=== PATIENT | female | born 1970 | race Caucasian/White ===

== ENCOUNTER 2016-08-05 21:16 | Inpatient (IN) | payer BC, OTHER ==
[~2016-08-05] VITALS: Ht 165.1 cm; Wt 131.0 kg
[2016-08-05] MEDS ORDERED: MoRPHine SULFATE 4 MG/ML 1 ML CARP\\VIAL IV STA ×2 (21:50→23:15)
[2016-08-05] MEDS ORDERED: SODIUM CHLORIDE 0.9% 1000ML 1,000 ML IV STA (21:50)
[2016-08-05] MEDS ORDERED: ONDANSETRON INJ 2 MG/ML 2 ML VIAL IV STA ×2 (21:50→23:58)
[2016-08-05 22:13] LABS: BASO % 0.2 %; BASO ABS # 0.03 K/uL (0-0.2); COMPLETE YES; EOS % 2.4 %; HEMATOCRIT 35.5 % (37-47); IG% 0.3 %; LYMPH % 17.2 %; LYMPH ABS # 2.11 K/uL (1.2-3.4); MEAN CELL VOLUME 86.6 fL (80-100); MEAN CORPUSCULAR HEMOGLOBIN 29.3 pg (25-34); MEAN CORPUSCULAR HGB CONC 33.8 g/dl (32-36); MEAN PLATELET VOLUME 9.6 fL (7.4-10.4); MONO % 5.1 %; NEUT % 74.8 %; PLATELET COUNT 360 K/uL (130-400); WHITE BLOOD COUNT 12.25 K/uL (4.8-10.8)
[2016-08-05 22:31] LABS: BUN/CREATININE RATIO 13.3 (10-20); CALCIUM 9.4 mg/dl (8.5-10.1); CREATININE 1.3 mg/dl (0.60-1.20); POTASSIUM 3.6 mmol/L (3.5-5.1)
[2016-08-05 22:45] LABS: PREG INTERNAL NEGATIVE QC NEG CLEAR BACKGROUND; PREG INTERNAL POSITIVE QC POS CONTROL LINE
--- NOTE | 2016-08-05 22:46 | DIAGNOSTIC IMAGING REPORT ---
BILIARY ULTRASOUND CLINICAL HISTORY: Right upper quadrant abdominal pain. Nausea. COMPARISON STUDY: None FINDINGS: The pancreas appears normal as visualized. No focal hepatic masses are visualized. There is no ductal dilatation. The common bile duct measures 6 mm. There is a large calcified gallstone. There is mild gallbladder wall thickening. There is no pericholecystic fluid. IMPRESSION: 1. Cholelithiasis with mild gallbladder wall thickening 2. No evidence of ductal dilatation. Electronically signed by: Davion Porter M.D. 08/05/2016 10:44 PM Dictated Date/Time: 08/05/2016 10:42 PM
[2016-08-05 23:26] LABS: URINE APPEARANCE CLOUDY (CLEAR); URINE BILIRUBIN NEG (NEG); URINE COLOR YELLOW; URINE EPITHELIAL CELL AUTO >30 /lpf (0-5); URINE NITRITE NEG (NEG); URINE SPECIFIC GRAVITY 1.025 (1.000-1.030); UROBILINOGEN NEG (NEG); ZZUR CULT IF INDIC CLEAN CATCH NO
[2016-08-05 23:32] LABS: MANUAL MICROSCOPIC REQUIRED? NO; REVIEW REQ? NO
--- NOTE | 2016-08-05 23:33 | EMERGENCY ROOM VISIT NOTE ---
History First contact with patient: 21:36 Chief Complaint: ABDOMINAL PAIN Stated Complaint: UPPER RIGHT ABD PAIN Nursing Triage Summary: pt c/o since 1600 having pain in upper right abd under her ribs History of Present Illness The patient is a 45 year old female who presents to the Emergency Room with complaints of right-sided abdominal pain. She reports that she developed pain in her right upper abdomen approximately 5 hours ago. The patient states that she initially thought the pain may be due to gas, but her symptoms continued to gradually worsen. She states that the pain became worse after eating. She reports it has been colicky pain. She rates her current discomfort an 8/10. She has had nausea, but no vomiting. She denies any urinary symptoms or changes in bowel movements. She reports that she has had similar episodes of pain one month ago and one year ago. 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 She denies any history of abdominal surgery. She denies any fevers/chills, chest pain or shortness of breath. Review of Systems A complete 10-point Review of Systems was discussed with the patient, with pertinent positives and negatives listed in the History of Present Illness. All remaining Review of Systems questions can be considered negative unless otherwise specified. Past Medical/Surgical History Medical Problems: (1) Acute cholecystitis Social History Smoking Status: Never Smoker Current/Historical Medications Scheduled Atorvastatin (Lipitor), 10 MG PO QPM Hctz/Losartan (Hyzaar 12.5MG/50MG), 1 TAB PO QAM Ranitidine HCl (Ranitidine 75), 75 MG PO QPM Allergies Coded Allergies: Penicillins (Verified Allergy, Unknown, 08/06/16) Sulfa Drugs (Verified Allergy, Unknown, 08/06/16) Uncoded Allergies: PENICILLIN, SULFA (Allergy, Unknown, 01/20/04) Physical Exam Vital Signs Date Time Temp Pulse Resp B/P Pulse Ox O2 Delivery O2 Flow Rate FiO2 08/05/16 23:20 75 18 116/65 97 Room Air 08/05/16 21:22 36.7 91 18 183/92 99 Room Air Physical Exam VITALS: Vitals are noted on the nurse's note and reviewed by myself. Vital signs stable. GENERAL: This is a 45-year-old female, in no acute distress, nondiaphoretic, well-developed well-nourished. SKIN: Capillary reflex less than 2 seconds. HEENT: Normocephalic. PERRLA. EOMI. Nares patent. Mucous membranes moist. Neck is supple without nuchal rigidity. HEART: Regular rate and rhythm without murmurs gallops or rubs. LUNGS: Clear to auscultation bilaterally without wheezes, rales or rhonchi. ABDOMEN: Positive bowel sounds x 4. Soft, nondistended. There is moderate tenderness to palpation of the right upper quadrant. No guarding or rebound tenderness. Negative Gaspar sign. NEURO: Patient was alert and oriented to person place and time. Medical Decision & Procedures ER Provider Diagnostic Interpretation: BILIARY ULTRASOUND CLINICAL HISTORY: Right upper quadrant abdominal pain. Nausea. COMPARISON STUDY: None FINDINGS: The pancreas appears normal as visualized. No focal hepatic masses are visualized. There is no ductal dilatation. The common bile duct measures 6 mm. There is a large calcified gallstone. There is mild gallbladder wall thickening. There is no pericholecystic fluid. IMPRESSION: 1. Cholelithiasis with mild gallbladder wall thickening 2. No evidence of ductal dilatation. Laboratory Results 08/05/16 22:04 Red Blood Count 4.10, Mean Corpuscular Volume 86.6, Mean Corpuscular Hemoglobin 29.3, Mean Corpuscular Hemoglobin Concent 33.8, Mean Platelet Volume 9.6, Neutrophils (%) (Auto) 74.8, Lymphocytes (%) (Auto) 17.2, Monocytes (%) (Auto) 5.1, Eosinophils (%) (Auto) 2.4, Basophils (%) (Auto) 0.2, Neutrophils # (Auto) 9.15, Lymphocytes # (Auto) 2.11, Monocytes # (Auto) 0.63, Eosinophils # (Auto) 0.29, Basophils # (Auto) 0.03 08/05/16 22:04 Test 08/05/16 22:04 08/05/16 22:10 White Blood Count 12.25 K/uL (4.8-10.8) Red Blood Count 4.10 M/uL (4.2-5.4) Hemoglobin 12.0 g/dL (12.0-16.0) Hematocrit 35.5 % (37-47) Mean Corpuscular Volume 86.6 fL (80-100) Mean Corpuscular Hemoglobin 29.3 pg (25-34) Mean Corpuscular Hemoglobin Concent 33.8 g/dl (32-36) Platelet Count 360 K/uL (130-400) Mean Platelet Volume 9.6 fL (7.4-10.4) Neutrophils (%) (Auto) 74.8 % Lymphocytes (%) (Auto) 17.2 % Monocytes (%) (Auto) 5.1 % Eosinophils (%) (Auto) 2.4 % Basophils (%) (Auto) 0.2 % Neutrophils # (Auto) 9.15 K/uL (1.4-6.5) Lymphocytes # (Auto) 2.11 K/uL (1.2-3.4) Monocytes # (Auto) 0.63 K/uL (0.11-0.59) Eosinophils # (Auto) 0.29 K/uL (0-0.5) Basophils # (Auto) 0.03 K/uL (0-0.2) RDW Standard Deviation 40.4 fL (36.4-46.3) RDW Coefficient of Variation 12.8 % (11.5-14.5) Immature Granulocyte % (Auto) 0.3 % Immature Granulocyte # (Auto) 0.04 K/uL (0.00-0.02) Anion Gap 8.0 mmol/L (3-11) Est Creatinine Clear Calc Drug Dose 73.1 ml/min Estimated GFR () 56.6 Estimated GFR (Non- 48.8 BUN/Creatinine Ratio 13.3 (10-20) Calcium Level 9.4 mg/dl (8.5-10.1) Total Bilirubin 0.3 mg/dl (0.2-1) Aspartate Amino Transf (AST/SGOT) 15 U/L (15-37) Alanine Aminotransferase (ALT/SGPT) 24 U/L (12-78) Alkaline Phosphatase 90 U/L (45-117) Total Protein 7.5 gm/dl (6.4-8.2) Albumin 3.8 gm/dl (3.4-5.0) Globulin 3.7 gm/dl (2.5-4.0) Albumin/Globulin Ratio 1.0 (0.9-2) Lipase 129 U/L (73-393) Urine Color YELLOW Urine Appearance CLOUDY (CLEAR) Urine pH 7.0 (4.5-7.5) Urine Specific [place] 1.025 (1.000-1.030) Urine Protein NEG (NEG) Urine Glucose (UA) NEG (NEG) Urine Ketones NEG (NEG) Urine Occult Blood NEG (NEG) Urine Nitrite NEG (NEG) Urine Bilirubin NEG (NEG) Urine Urobilinogen NEG (NEG) Urine Leukocyte Esterase NEG (NEG) Urine WBC (Auto) 1-5 /hpf (0-5) Urine RBC (Auto) 0-4 /hpf (0-4) Urine Hyaline Casts (Auto) 1-5 /lpf (0-5) Urine Epithelial Cells (Auto) >30 /lpf (0-5) Urine Bacteria (Auto) NEG (NEG) Urine Test NEG (NEG) Medications Administered Medications (Trade) Dose Ordered Sig/Caitlin Route Start Time Stop Time Status Last Admin Dose Admin Sodium Chloride (Nss 1000ml) 1,000 ml @ 999 mls/hr Q1H1M STAT IV 08/05/16 21:50 08/05/16 22:50 DC 08/05/16 22:03 999 MLS/HR Morphine Sulfate (MoRPHine SULFATE INJ) 4 mg NOW STAT IV 08/05/16 21:50 08/05/16 21:52 DC 08/05/16 22:03 4 MG Ondansetron HCl (Zofran Inj) 4 mg NOW STAT IV 08/05/16 21:50 08/05/16 21:52 DC 08/05/16 22:03 4 MG Morphine Sulfate (MoRPHine SULFATE INJ) 4 mg NOW STAT IV 08/05/16 23:15 08/05/16 23:16 DC 08/05/16 23:27 4 MG Ondansetron HCl (Zofran Inj) 4 mg NOW STAT IV 08/05/16 23:58 08/05/16 23:59 DC 08/06/16 00:03 4 MG Ondansetron HCl (Zofran Inj) 4 mg Q4H PRN IV 08/06/16 00:45 09/05/16 00:44 08/06/16 02:00 4 MG Oxycodone/ Acetaminophen (Percocet 5-325mg Tab) 1 tab Q4H PRN PO 08/06/16 00:45 08/20/16 00:44 08/06/16 01:42 1 TAB ED Course The patient was evaluated as above. Labs were drawn and IV access was obtained. Patient was medicated with 1 L normal saline solution, 4 mg morphine IV and 4 mg Zofran IV. Right upper quadrant ultrasound was performed and read by radiology as above. Patient was reevaluated and had continued pain. She was given an additional 4 mg morphine and 4 mg Zofran. Case was discussed with Dr. Mast. He agreed to admit the patient for pain control and surgical intervention in the morning. Medical Decision Differential diagnosis includes cholecystitis, cholelithiasis, ascending cholangitis, renal calculus, pyelonephritis, gastroenteritis, colitis, among others. The patient is a 45-year-old female who presents today complaining of right upper quadrant pain. Labs revealed a leukocytosis of 12.25. No concerning anemia. LFTs were not elevated. Bilirubin was within normal limits. Urinalysis was not suggestive of infection. Urine was negative. Right upper quadrant ultrasound showed evidence of cholelithiasis with gallbladder wall thickening. In the setting of the patient's pain and leukocytosis, I feel this likely represents acute cholecystitis. Case was discussed with Dr. Mast, the general surgeon on-call, who will evaluate and admit the patient. The patient's case was reviewed with Dr. Mccray, ED attending physician, who agreed with my assessment and treatment plan. Impression Primary Impression: Acute cholecystitis Departure Information Referrals Toña Falk M.D. (PCP) Patient Instructions My [facility]
[2016-08-06] MEDS ORDERED: RANI1TAB75 PO (00:35)
[2016-08-06] MEDS ORDERED: ATOR10TA82 PO (00:35)
[2016-08-06] MEDS ORDERED: HYZ/50125 PO (00:35)
[2016-08-06] MEDS ORDERED: HYDROmorphone INJ 1 MG/ML SYR IV PRN (00:45)
[2016-08-06] MEDS ORDERED: ACETAMINOPHEN 325 MG TAB PO PRN (00:45)
--- NOTE | 2016-08-06 00:53 | History and Physical ---
History & Physical Date & Time of Service: Aug 06, 2016 at 00:47 Chief Complaint: Upper Right Abd Pain Primary Care Physician: Toña Falk M.D. History of Present Illness Source: patient, spouse The patient is a 45 year old female who presents to the Emergency Room with complaints of right-sided abdominal pain. She reports that she developed pain in her right upper abdomen approximately 5 hours ago. The patient states that she initially thought the pain may be due to gas, but her symptoms continued to gradually worsen. She states that the pain became worse after eating. She reports it has been colicky pain. She rates her current discomfort an 8/10. She has had nausea, but no vomiting. She denies any urinary symptoms or changes in bowel movements. She reports that she has had similar episodes of pain one month ago and one year ago. 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 She denies any history of abdominal surgery. She denies any fevers/chills, chest pain or shortness of breath. pt is still have some RUQ pain, with some nausea, but pt denies vomiting, no fever, Social History Smoking Status: Never Smoker Alcohol Use: occasionally Drug Use: none Multi-Drug Resistant Organisms History of MDRO: No Allergies Coded Allergies: Penicillins (Verified Allergy, Unknown, 08/06/16) Sulfa Drugs (Verified Allergy, Unknown, 08/06/16) Uncoded Allergies: PENICILLIN, SULFA (Allergy, Unknown, 01/20/04) Home Medications Scheduled Atorvastatin (Lipitor), 10 MG PO QPM Hctz/Losartan (Hyzaar 12.5MG/50MG), 1 TAB PO QAM Ranitidine HCl (Ranitidine 75), 75 MG PO QPM Review of Systems Constitutional: No chills, No fatigue, No fever, No problem reported, No sweats , No weakness, No weight loss Eyes: No diplopia, No discharge, No eye pain, No problem reported, No redness, No worsening of vision ENT: No dental problems, No hearing loss, No nasal symptoms, No problem reported, No sore throat, No tinnitus, No trouble swallowing, No unusual epistaxis Respiratory: No cough, No dyspnea at rest, No dyspnea on exertion, No hemoptysis, No problem reported, No shortness of breath, No sputum, No wheezing Cardiovascular: No PND, No chest pain, No claudication, No edema, No orthopnea , No palpitations, No problem reported Abdomen: + nausea, + pain Neurologic: No balance problems, No memory loss, No numbness/tingling, No paralysis, No problem reported, No vertigo, No weakness Hematologic / Lymphatic: No abnormal bleeding/bruising, No clotting problems, No night sweats, No problem reported, No swollen lymph nodes Physical Exam Vital Signs Date Time Temp Pulse Resp B/P Pulse Ox O2 Delivery O2 Flow Rate FiO2 08/05/16 23:20 75 18 116/65 97 Room Air 08/05/16 21:22 36.7 91 18 183/92 99 Room Air General Appearance: WD/WN, + mild distress Head: normocephalic Eyes: normal inspection ENT: normal ENT inspection Neck: supple, no JVD Respiratory/Chest: chest non-tender, lungs clear Cardiovascular: regular rate, rhythm, no edema, no gallop, no JVD, no murmur Abdomen/GI: normal bowel sounds, soft, no organomegaly, + tenderness (RUQ) Extremities/Musculoskelatal: normal inspection, no calf tenderness, normal capillary refill 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, no motor/sensory deficits, alert, normal mood/affect Diagnostics Laboratory Results Results Past 24 Hours Test 08/05/16 22:04 08/05/16 22:10 Range/Units White Blood Count 12.25 4.8-10.8 K/uL Red Blood Count 4.10 4.2-5.4 M/uL Hemoglobin 12.0 12.0-16.0 g/dL Hematocrit 35.5 37-47 % Mean Corpuscular Volume 86.6 80-100 fL Mean Corpuscular Hemoglobin 29.3 25-34 pg Mean Corpuscular Hemoglobin Concent 33.8 32-36 g/dl Platelet Count 360 130-400 K/uL Mean Platelet Volume 9.6 7.4-10.4 fL Neutrophils (%) (Auto) 74.8 % Lymphocytes (%) (Auto) 17.2 % Monocytes (%) (Auto) 5.1 % Eosinophils (%) (Auto) 2.4 % Basophils (%) (Auto) 0.2 % Neutrophils # (Auto) 9.15 1.4-6.5 K/uL Lymphocytes # (Auto) 2.11 1.2-3.4 K/uL Monocytes # (Auto) 0.63 0.11-0.59 K/uL Eosinophils # (Auto) 0.29 0-0.5 K/uL Basophils # (Auto) 0.03 0-0.2 K/uL RDW Standard Deviation 40.4 36.4-46.3 fL RDW Coefficient of Variation 12.8 11.5-14.5 % Immature Granulocyte % (Auto) 0.3 % Immature Granulocyte # (Auto) 0.04 0.00-0.02 K/uL Sodium Level 140 136-145 mmol/L Potassium Level 3.6 3.5-5.1 mmol/L Chloride Level 105 98-107 mmol/L Carbon Dioxide Level 27 21-32 mmol/L Anion Gap 8.0 3-11 mmol/L Blood Urea Nitrogen 17 7-18 mg/dl Creatinine 1.30 0.60-1.20 mg/dl Est Creatinine Clear Calc Drug Dose 73.1 ml/min Estimated GFR () 56.6 Estimated GFR (Non- 48.8 BUN/Creatinine Ratio 13.3 10-20 Random Glucose 107 70-99 mg/dl Calcium Level 9.4 8.5-10.1 mg/dl Total Bilirubin 0.3 0.2-1 mg/dl Aspartate Amino Transf (AST/SGOT) 15 15-37 U/L Alanine Aminotransferase (ALT/SGPT) 24 12-78 U/L Alkaline Phosphatase 90 45-117 U/L Total Protein 7.5 6.4-8.2 gm/dl Albumin 3.8 3.4-5.0 gm/dl Globulin 3.7 2.5-4.0 gm/dl Albumin/Globulin Ratio 1.0 0.9-2 Lipase 129 73-393 U/L Urine Color YELLOW Urine Appearance CLOUDY CLEAR Urine pH 7.0 4.5-7.5 Urine Specific [place] 1.025 1.000-1.030 Urine Protein NEG NEG Urine Glucose (UA) NEG NEG Urine Ketones NEG NEG Urine Occult Blood NEG NEG Urine Nitrite NEG NEG Urine Bilirubin NEG NEG Urine Urobilinogen NEG NEG Urine Leukocyte Esterase NEG NEG Urine WBC (Auto) 1-5 0-5 /hpf Urine RBC (Auto) 0-4 0-4 /hpf Urine Hyaline Casts (Auto) 1-5 0-5 /lpf Urine Epithelial Cells (Auto) >30 0-5 /lpf Urine Bacteria (Auto) NEG NEG Urine Test NEG NEG Diagnostic Radiology U/S study-IMPRESSION: 1. Cholelithiasis with mild gallbladder wall thickening 2. No evidence of ductal dilatation. Impression Assessment and Plan IMP acute cholecystitis, cholelithiasis Plan, lady to hospital IV fluid, antibiotic, control pain, pt will have laparoscopic cholecystectomy, Possible open or cholangiogram, D/W benefits, risks and alternatives of procedure, pt understood, she agrees with tushar, I answered all questions, Level of Care Med/Surg VTE Prophylaxis VTE Risk Assessment Done? Y/N: Yes Risk Level: Low Given or contraindicated: SCD's
[2016-08-06 01:19] VITALS: BP 142/84; PULSE 83; TEMP 36.7; O2SAT 95
[2016-08-06 01:20] VITALS: Ht 165.1 cm; Wt 131.0 kg
[2016-08-06] MEDS: OXYCODONE/ACETAMINOPHEN 5-325 TAB PO PRN ×5 (01:42→23:43)
[2016-08-06] MEDS: D5W AND 1/2NSS + 20MEQ KCL 1,000 ML IV SCH ×3 (01:55→21:51)
[2016-08-06] MEDS: ONDANSETRON INJ 2 MG/ML 2 ML VIAL IV PRN ×2 (02:00→08:19)
[2016-08-06] MEDS: CIPROFLOXACIN / D5W 400 MG in PREMIXED IN D5W 200 ML IV SCH ×2 (04:02→16:05)
[2016-08-06] MEDS ORDERED: METRONIDAZOLE / NSS 500 MG in PREMIXED NSS 0 ML IV SCH (06:00)
[2016-08-06 07:24] VITALS: BP 118/70; PULSE 84; TEMP 37.1; O2SAT 97
--- NOTE | 2016-08-06 09:15 | Surgery Progress Note ---
Surgery Progress Note Date of Service Aug 06, 2016. Subjective + feeling well F/U acute cholecystitis, cholelithiasis pt is doing better, less pain, some nausea, no vomiting, Objective Vital Signs: Date Time Temp Pulse Resp B/P Pulse Ox O2 Delivery O2 Flow Rate FiO2 08/06/16 07:24 37.1 84 16 118/70 97 Room Air 08/06/16 01:20 Room Air 08/06/16 01:19 36.7 83 14 142/84 95 Room Air 08/06/16 01:08 76 18 146/83 96 08/05/16 23:20 75 18 116/65 97 Room Air 08/05/16 21:22 36.7 91 18 183/92 99 Room Air General Appearance: WD/WN Head: normocephalic Neck: supple, no adenopathy, no JVD Respiratory/Chest: chest non-tender, lungs clear Cardiovascular: regular rate, rhythm, no edema, no gallop, no JVD Abdomen: normal bowel sounds, non tender, non distended, soft Extremities: normal range of motion, non-tender, normal inspection Laboratory Results: Results Past 24 Hours Test 08/05/16 22:04 08/05/16 22:10 Range/Units White Blood Count 12.25 4.8-10.8 K/uL Red Blood Count 4.10 4.2-5.4 M/uL Hemoglobin 12.0 12.0-16.0 g/dL Hematocrit 35.5 37-47 % Mean Corpuscular Volume 86.6 80-100 fL Mean Corpuscular Hemoglobin 29.3 25-34 pg Mean Corpuscular Hemoglobin Concent 33.8 32-36 g/dl Platelet Count 360 130-400 K/uL Mean Platelet Volume 9.6 7.4-10.4 fL Neutrophils (%) (Auto) 74.8 % Lymphocytes (%) (Auto) 17.2 % Monocytes (%) (Auto) 5.1 % Eosinophils (%) (Auto) 2.4 % Basophils (%) (Auto) 0.2 % Neutrophils # (Auto) 9.15 1.4-6.5 K/uL Lymphocytes # (Auto) 2.11 1.2-3.4 K/uL Monocytes # (Auto) 0.63 0.11-0.59 K/uL Eosinophils # (Auto) 0.29 0-0.5 K/uL Basophils # (Auto) 0.03 0-0.2 K/uL RDW Standard Deviation 40.4 36.4-46.3 fL RDW Coefficient of Variation 12.8 11.5-14.5 % Immature Granulocyte % (Auto) 0.3 % Immature Granulocyte # (Auto) 0.04 0.00-0.02 K/uL Sodium Level 140 136-145 mmol/L Potassium Level 3.6 3.5-5.1 mmol/L Chloride Level 105 98-107 mmol/L Carbon Dioxide Level 27 21-32 mmol/L Anion Gap 8.0 3-11 mmol/L Blood Urea Nitrogen 17 7-18 mg/dl Creatinine 1.30 0.60-1.20 mg/dl Est Creatinine Clear Calc Drug Dose 73.1 ml/min Estimated GFR () 56.6 Estimated GFR (Non- 48.8 BUN/Creatinine Ratio 13.3 10-20 Random Glucose 107 70-99 mg/dl Calcium Level 9.4 8.5-10.1 mg/dl Total Bilirubin 0.3 0.2-1 mg/dl Aspartate Amino Transf (AST/SGOT) 15 15-37 U/L Alanine Aminotransferase (ALT/SGPT) 24 12-78 U/L Alkaline Phosphatase 90 45-117 U/L Total Protein 7.5 6.4-8.2 gm/dl Albumin 3.8 3.4-5.0 gm/dl Globulin 3.7 2.5-4.0 gm/dl Albumin/Globulin Ratio 1.0 0.9-2 Lipase 129 73-393 U/L Urine Color YELLOW Urine Appearance CLOUDY CLEAR Urine pH 7.0 4.5-7.5 Urine Specific [place] 1.025 1.000-1.030 Urine Protein NEG NEG Urine Glucose (UA) NEG NEG Urine Ketones NEG NEG Urine Occult Blood NEG NEG Urine Nitrite NEG NEG Urine Bilirubin NEG NEG Urine Urobilinogen NEG NEG Urine Leukocyte Esterase NEG NEG Urine WBC (Auto) 1-5 0-5 /hpf Urine RBC (Auto) 0-4 0-4 /hpf Urine Hyaline Casts (Auto) 1-5 0-5 /lpf Urine Epithelial Cells (Auto) >30 0-5 /lpf Urine Bacteria (Auto) NEG NEG Urine Test NEG NEG Assessment & Plan IMP : acute cholecystitis pt will have laparoscopic cholecystectomy, possible open or cholangiogram, D/W benefits, risks and alternatives of the procedure, the risks- infection, bleeding, injury CBD, bowel, incisional hernia, pt understood, she agrees with the plan, I answered all questions, full liquids
--- NOTE | 2016-08-06 13:46 | Anesthesiology Progress Note ---
Anesthesia Progress Note Date of Service Aug 06, 2016. Progress Notes Ms. Sam is a pleasant 45 year old female who is slated for a lap chol on with Dr. Mast. She has allergies to PCN (rash) and sulfa medications. PSH significant only for WTE. PMH significant for asthma (although mild and has not used an inhaler x2 years), controlled GERD, obesity and CVA in 1985 2/2 bleeding from cavernous hemangioma (no surgery required). She does have mild left sided facial numbness but no other neurological deficits. Airway exam showed thick neck, intact dentition and MP 2. Patient consented for GETA and all questions regarding anesthesia were answered. Patient appears optimized for surgery tomorrow.
[2016-08-06] MEDS: METRONIDAZOLE / NSS 500 MG in PREMIXED NSS 100 ML IV SCH ×2 (13:53→21:52)
[2016-08-06 15:10] VITALS: BP 134/79; PULSE 74; TEMP 36.8; O2SAT 96
[2016-08-06 23:00] VITALS: BP 103/69; PULSE 78; TEMP 36.8; O2SAT 98
[2016-08-07] VITALS (9 sets, daily range): BP systolic 108–139; BP diastolic 67–86; PULSE 77–93; TEMP 36.8–37.5; O2SAT 92–98
[2016-08-07] MEDS: CIPROFLOXACIN / D5W 400 MG in PREMIXED IN D5W 200 ML IV SCH ×2 (04:08→16:51)
[2016-08-07] MEDS: OXYCODONE/ACETAMINOPHEN 5-325 TAB PO PRN ×2 (04:11→20:36)
[2016-08-07 06:47] LABS: BASO % 0.3 %; BASO ABS # 0.03 K/uL (0-0.2); COMPLETE YES; EOS % 2.7 %; HEMATOCRIT 31.2 % (37-47); IG% 0.1 %; LYMPH % 17.6 %; LYMPH ABS # 1.72 K/uL (1.2-3.4); MEAN CELL VOLUME 87.9 fL (80-100); MEAN CORPUSCULAR HEMOGLOBIN 29.3 pg (25-34); MEAN CORPUSCULAR HGB CONC 33.3 g/dl (32-36); MEAN PLATELET VOLUME 9.5 fL (7.4-10.4); MONO % 8.8 %; NEUT % 70.5 %; PLATELET COUNT 289 K/uL (130-400); RED BLOOD COUNT 3.55 M/uL (4.2-5.4); WHITE BLOOD COUNT 9.75 K/uL (4.8-10.8)
[2016-08-07 07:26] LABS: CALCIUM 8.2 mg/dl (8.5-10.1); CREATININE 0.82 mg/dl (0.60-1.20)
[2016-08-07 07:29] LABS: ALB/GLOB RATIO 0.9 (0.9-2)
[2016-08-07] MEDS: D5W AND 1/2NSS + 20MEQ KCL 1,000 ML IV SCH ×2 (08:03→16:53)
--- NOTE | 2016-08-07 08:45 | Surgery Progress Note ---
Surgery Progress Note Date of Service Aug 07, 2016. Subjective + feeling well pt is doing better, less abdominal pain, no nausea, no vomiting, Objective Vital Signs: Date Time Temp Pulse Resp B/P Pulse Ox O2 Delivery O2 Flow Rate FiO2 08/07/16 07:39 37.0 79 18 139/86 98 Room Air 08/06/16 23:15 Room Air 08/06/16 23:00 36.8 78 16 103/69 98 Room Air 08/06/16 15:15 Room Air 08/06/16 15:10 36.8 74 18 134/79 96 Room Air General Appearance: WD/WN Head: normocephalic Neck: supple, no JVD Respiratory/Chest: chest non-tender, lungs clear Cardiovascular: regular rate, rhythm, no edema, no gallop Abdomen: normal bowel sounds, non distended, soft, + tenderness (RUQ) Extremities: normal range of motion, non-tender, normal inspection Laboratory Results: Results Past 24 Hours Test 08/07/16 06:32 Range/Units White Blood Count 9.75 4.8-10.8 K/uL Red Blood Count 3.55 4.2-5.4 M/uL Hemoglobin 10.4 12.0-16.0 g/dL Hematocrit 31.2 37-47 % Mean Corpuscular Volume 87.9 80-100 fL Mean Corpuscular Hemoglobin 29.3 25-34 pg Mean Corpuscular Hemoglobin Concent 33.3 32-36 g/dl Platelet Count 289 130-400 K/uL Mean Platelet Volume 9.5 7.4-10.4 fL Neutrophils (%) (Auto) 70.5 % Lymphocytes (%) (Auto) 17.6 % Monocytes (%) (Auto) 8.8 % Eosinophils (%) (Auto) 2.7 % Basophils (%) (Auto) 0.3 % Neutrophils # (Auto) 6.87 1.4-6.5 K/uL Lymphocytes # (Auto) 1.72 1.2-3.4 K/uL Monocytes # (Auto) 0.86 0.11-0.59 K/uL Eosinophils # (Auto) 0.26 0-0.5 K/uL Basophils # (Auto) 0.03 0-0.2 K/uL RDW Standard Deviation 42.1 36.4-46.3 fL RDW Coefficient of Variation 13.0 11.5-14.5 % Immature Granulocyte % (Auto) 0.1 % Immature Granulocyte # (Auto) 0.01 0.00-0.02 K/uL Sodium Level 140 136-145 mmol/L Potassium Level 4.0 3.5-5.1 mmol/L Chloride Level 109 98-107 mmol/L Carbon Dioxide Level 26 21-32 mmol/L Anion Gap 5.0 3-11 mmol/L Blood Urea Nitrogen 7 7-18 mg/dl Creatinine 0.82 0.60-1.20 mg/dl Est Creatinine Clear Calc Drug Dose 116.0 ml/min Estimated GFR () 98.8 Estimated GFR (Non- 85.2 BUN/Creatinine Ratio 9.0 10-20 Random Glucose 121 70-99 mg/dl Calcium Level 8.2 8.5-10.1 mg/dl Total Bilirubin 0.7 0.2-1 mg/dl Aspartate Amino Transf (AST/SGOT) 13 15-37 U/L Alanine Aminotransferase (ALT/SGPT) 23 12-78 U/L Alkaline Phosphatase 79 45-117 U/L Total Protein 6.5 6.4-8.2 gm/dl Albumin 3.1 3.4-5.0 gm/dl Globulin 3.4 2.5-4.0 gm/dl Albumin/Globulin Ratio 0.9 0.9-2 Assessment & Plan IMP : acute cholecystitis, I reviewed all labs, pt will have laparoscopic cholecystectomy, possible open or cholangiogram, D/W benefits, risks and alternatives of the procedure, the risks- infection, bleeding, injury CBD, bowel, incisional hernia, pt understood, she agrees with the plan, I answered all questions, IMP : acute cholecystitis pt will have laparoscopic cholecystectomy, possible open or cholangiogram, D/W benefits, risks and alternatives of the procedure, the risks- infection, bleeding, injury CBD, bowel, incisional hernia, pt understood, she agrees with the plan, I answered all questions,
[2016-08-07] MEDS ORDERED: FENTANYL CITRATE INJ 50 MCG/1 ML 2 ML VIAL ONE ×3 (10:41→15:39)
[2016-08-07] MEDS ORDERED: MIDAZOLAM HCL 1 MG/ML 2ML VIAL ONE ×2 (10:42→12:26)
[2016-08-07] MEDS ORDERED: PROPOFOL IV EMULSION 10 MG/ML 20 ML VIAL IV ONE ×3 (11:04→15:15)
[2016-08-07] MEDS ORDERED: ONDANSETRON INJ 2 MG/ML 2 ML VIAL ONE ×2 (11:04→12:26)
[2016-08-07] MEDS ORDERED: DEXAMETHASONE SOD INJ 4 MG/ML VIAL ONE ×3 (11:04→13:01)
[2016-08-07] MEDS ORDERED: ROCURONIUM BROMIDE 10 MG/ML 5 ML VIAL ONE ×2 (11:04→12:26)
[2016-08-07] MEDS ORDERED: GLYCOPYRROLATE INJ 0.2 MG/ML VIAL ONE ×2 (11:04→12:26)
[2016-08-07] MEDS ORDERED: LIDOCAINE HCL 2% 2 ML VIAL (20MG/ML) ONE ×2 (11:04→12:26)
[2016-08-07] MEDS ORDERED: NEOSTIGMINE METHYLSULFATE 5 MG/5 ML SYR ONE ×2 (11:04→12:26)
[2016-08-07] MEDS ORDERED: SCOPOLAMINE 1.5 MG TDSY TD ONE (11:57)
--- NOTE | 2016-08-07 12:06 | History & Physical Bridge Note ---
H&P Re-Evaluation Bridge Note: I have examined the patient, reviewed the History & Physical and in the interval since the performance of the History & Physical I have noted the following changes of clinical significance: No changes noted
[2016-08-07] MEDS ORDERED: CLINDAMYCIN 600 MG/54 ML D5W IV ONE (12:09)
[2016-08-07] MEDS ORDERED: HYDROmorphone INJ 1 MG/ML SYR IV PRN (12:15)
[2016-08-07] MEDS ORDERED: ATROPINE SULFATE 0.1 MG/ML 5ML SYR IV PRN (12:15)
[2016-08-07] MEDS ORDERED: EpHEDrine SULFATE INJ 50 MG/ML AMP IV PRN (12:15)
[2016-08-07] MEDS ORDERED: ONDANSETRON INJ 2 MG/ML 2 ML VIAL IV PRN ×2 (12:15→15:45)
[2016-08-07] MEDS ORDERED: NURSING VERBAL MED ORDER ONE ×3 (12:30→21:30)
[2016-08-07] MEDS ORDERED: CONRAY 60% 50 ML VIAL ONE (12:34)
[2016-08-07] MEDS: BUPIVACAINE 0.5 % 5 MG/1 ML MPF 30ML VIAL ONE ×2 (12:35→15:15)
[2016-08-07] MEDS: LIDOCAINE HCL 1% 20 ML VIAL ONE ×2 (12:36→15:15)
[2016-08-07] MEDS ORDERED: BACITRACIN OINT 15 GM TUBE ONE (12:36)
[2016-08-07] MEDS ORDERED: PHENYLEPHRINE 100MCG/ML 5ML SYR ONE (13:17)
[2016-08-07] MEDS ORDERED: MoRPHine SULFATE 2 MG/ML CARP ONE (15:07)
--- NOTE | 2016-08-07 15:43 | [facility] Post Operative Brief Note ---
Immediate Operative Summary Operative Date Aug 07, 2016. Pre-Operative Diagnosis Acute Cholecystitis, cholelithiasis Post-Operative Diagnosis same Procedure(s) Performed Laparoscopic Cholecystectomy Surgeon Dr. 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
[2016-08-07] MEDS: FENTANYL CITRATE INJ 50 MCG/1 ML 2 ML VIAL IV PRN ×4 (15:44→16:00)
[2016-08-07] MEDS ORDERED: ACETAMINOPHEN 325 MG TAB PO PRN (15:45)
--- NOTE | 2016-08-07 16:29 | Anesthesiology Progress Note ---
Anesthesia Post Op Note Date & Time Aug 07, 2016 at 16:28 Vital Signs Pain Intensity: 3 Vital Signs Past 12 Hours Date Time Temp Pulse Resp B/P Pulse Ox O2 Delivery O2 Flow Rate FiO2 08/07/16 16:20 95 08/07/16 16:15 80 18 08/07/16 16:15 81 18 117/66 92 08/07/16 16:11 119/51 08/07/16 16:10 81 16 92 08/07/16 16:10 81 16 08/07/16 16:05 87 17 126/63 93 08/07/16 16:05 86 17 08/07/16 16:01 126/72 08/07/16 16:00 86 18 08/07/16 16:00 86 18 93 08/07/16 15:57 Nasal Cannula 3 08/07/16 15:55 83 13 128/59 92 08/07/16 15:55 83 13 08/07/16 15:50 83 11 08/07/16 15:50 84 11 130/66 92 08/07/16 15:45 86 12 123/63 94 08/07/16 15:45 86 12 08/07/16 15:41 128/61 08/07/16 15:40 85 20 91 08/07/16 15:40 83 26 08/07/16 15:37 129/81 08/07/16 15:35 36.9 83 16 129/81 96 Mask 10 08/07/16 11:37 37.0 77 18 142/83 99 Room Air 08/07/16 07:40 Room Air 08/07/16 07:39 37.0 79 18 139/86 98 Room Air Notes Mental Status: alert / awake / arousable, participated in evaluation Pt Amnestic to Procedure: Yes Nausea / Vomiting: adequately controlled Pain: adequately controlled Airway Patency, RR, SpO2: stable & adequate BP & HR: stable & adequate Hydration State: stable & adequate Anesthetic Complications: no major complications apparent
[2016-08-07] MEDS: HYDROmorphone INJ 1 MG/ML SYR IV PRN (16:51)
--- NOTE | 2016-08-07 18:09 | OPERATIVE REPORT ---
DATE OF OPERATION: 08/07/2016 PREOPERATIVE DIAGNOSIS: Acute cholecystitis and cholelithiasis. POSTOPERATIVE DIAGNOSIS: Same. PROCEDURE: Laparoscopic cholecystectomy and DARBY drainage x1. SURGEON: Dr. Pro Booth. ANESTHESIA: General. ESTIMATED BLOOD LOSS: About 30 mL. FINDINGS: Significant acute cholecystitis with gangrene, significant gallbladder wall thickening, edema. There is 1 large stone about 3 x 3 cm stuck near the cystic duct pouch over the gallbladder which is not feasible to do the intraoperative cholangiogram. COMPLICATIONS: None. INDICATIONS FOR THE PROCEDURE: This is a 45-year-old female who presented to the ED with couple day history of right upper quadrant pain. The patient had a CT scan and ultrasound showing acute cholecystitis with large gallstone and the patient was admitted to the hospital, given IV fluid, IV antibiotic and we decided to take the patient to the OR do the laparoscopic cholecystectomy, possible open, possible cholangiogram. I did talk to the patient about the benefit and risk alternate procedure. I indicated the risks may include but not limited such as bleeding, infection, injury to common bile duct, injury to bowel, may need ERCP, DVT, incisional hernia, bile leak, even . The patient understands. She signed informed consent. She agreed to proceed with the procedure. I answered all questions. DETAILS OF PROCEDURE: We brought the patient to the OR, put the patient in the supine position. The patient received SCD on bilateral legs to prevent DVT. Also, the patient received 600 mg of clindamycin IV for prophylactic antibiotic. The patient received general anesthesia without difficulty. The abdomen was prepped and draped in routine sterile fashion. After a timeout, I injected local anesthesia just above umbilical by using 1% lidocaine mixed with 0.25% Marcaine. Then I made a small incision just above the umbilical. Opened fascia, opened peritoneum under direct vision. I put a Cyndy trocar in, connected to CO2 to create pneumoperitoneum. Flow rate at 6 liter per minute. Pressure not more than 14 mmHg. Once we got a nice pneumoperitoneum we put a 10 mm camera in to look around the abdomen showing normal findings on the stomach, small bowel, large bowel and liver. However, there was some omentum covering the gallbladder, significant gallbladder wall thickening, edema and inflammation. Then, we put another 3 5 mm trocar on the right upper quadrant. Once all trocars in, based on the gallbladder significant inflammation and wall thickening edema I had to use long needle to decompress the gallbladder and suction the bile from the gallbladder. Once we decompressed the gallbladder, we put a grasper in to hold the gallbladder, put a direction diaphragm and put another grasper in to hold the pouch of the gallbladder pull lateral to expose triangle of calot; however, the patient had 1 large gallstone stuck in gallbladder pouch with size about 3 x 3 cm. At this moment, it was not feasible to do the intraoperative cholangiogram and then the cystic duct was identified and mobilized and then I put two 5 mm metal clips on the proximal cystic duct, one on the distal cystic duct. I used scissors transection of the cystic duct, cystic artery was identified and mobilized and put two 5 mm metal clips on the proximal cystic artery as well as on the distal artery. Then, I used scissors transection the cystic duct. Then we take down the gallbladder through the liver bed. However, based on the patient had significant gallbladder wall thickening, inflammation and gangrene on the gallbladder. After we removed the gallbladder, there was some oozing and at this moment we decided to put the 10 mm DARBY drain in and once we took out the gallbladder, we pulled out the gallbladder through the catch bag and there was some pus inside the gallbladder. Then we reinserted Cyndy trocar fill CO2 to create pneumoperitoneum again and look around the abdomen and showed there is no leaking around the liver and no bleeding on the liver and gallbladder bed. Once we put the 10 mm DARBY drainage in, we used 30 suture to fix the DARBY on the skin and then we removed all trocars under direct vision. No active bleeding from trocar sites. The pneumoperitoneum was released and then I closed the umbilical incision fascial layer by using #1 Vicryl [id number] x2, closed subcutaneous layer by using 2-0 Vicryl, closed skin by using 4-0 Vicryl and we closed another 3.5 mm trocar site skin only by using 4-0 Vicryl. We put the dressing on. The patient tolerated the procedure well. All the instruments, needle and sponge count are correct x2 at the end of case. I attest to the content of the Intraoperative Record and any orders documented therein. Any exceptions are noted below. DESIREE
--- NOTE | 2016-08-07 18:28 | Surgery Progress Note ---
Surgery Progress Note Date of Service Aug 07, 2016. Subjective F/U S/P laparoscopic cholecystectomy, DARBY X1 POD 4 hours, pt is doing fine, good control incisional pain, she tolerated clear diet, no nausea, no vomiting, DARBY 10ml clear, Objective Vital Signs: Date Time Temp Pulse Resp B/P Pulse Ox O2 Delivery O2 Flow Rate FiO2 08/07/16 17:30 37.5 82 18 123/75 92 Nasal Cannula 4.0 08/07/16 17:03 36.8 81 15 113/70 92 Nasal Cannula 2.0 08/07/16 16:36 94 Nasal Cannula 2.0 08/07/16 16:35 37.3 85 15 120/67 94 Nasal Cannula 2.0 08/07/16 16:30 95 Nasal Cannula 2.0 08/07/16 16:20 95 08/07/16 16:15 80 18 08/07/16 16:15 81 18 117/66 92 08/07/16 16:11 119/51 08/07/16 16:10 81 16 92 08/07/16 16:10 81 16 08/07/16 16:05 87 17 126/63 93 08/07/16 16:05 86 17 08/07/16 16:01 126/72 08/07/16 16:00 86 18 08/07/16 16:00 86 18 93 08/07/16 15:57 Nasal Cannula 3 08/07/16 15:55 83 13 128/59 92 08/07/16 15:55 83 13 08/07/16 15:50 83 11 08/07/16 15:50 84 11 130/66 92 08/07/16 15:45 86 12 123/63 94 08/07/16 15:45 86 12 08/07/16 15:41 128/61 08/07/16 15:40 85 20 91 08/07/16 15:40 83 26 08/07/16 15:37 129/81 08/07/16 15:35 36.9 83 16 129/81 96 Mask 10 08/07/16 11:37 37.0 77 18 142/83 99 Room Air 08/07/16 07:40 Room Air 08/07/16 07:39 37.0 79 18 139/86 98 Room Air 08/06/16 23:15 Room Air 08/06/16 23:00 36.8 78 16 103/69 98 Room Air General Appearance: WD/WN Head: normocephalic Neck: supple, no JVD Respiratory/Chest: chest non-tender, lungs clear Cardiovascular: regular rate, rhythm, no edema Abdomen: normal bowel sounds, non tender, non distended, soft Incision(s): clean, dry, intact Extremities: normal range of motion, non-tender, normal inspection Laboratory Results: Results Past 24 Hours Test 08/07/16 06:32 Range/Units White Blood Count 9.75 4.8-10.8 K/uL Red Blood Count 3.55 4.2-5.4 M/uL Hemoglobin 10.4 12.0-16.0 g/dL Hematocrit 31.2 37-47 % Mean Corpuscular Volume 87.9 80-100 fL Mean Corpuscular Hemoglobin 29.3 25-34 pg Mean Corpuscular Hemoglobin Concent 33.3 32-36 g/dl Platelet Count 289 130-400 K/uL Mean Platelet Volume 9.5 7.4-10.4 fL Neutrophils (%) (Auto) 70.5 % Lymphocytes (%) (Auto) 17.6 % Monocytes (%) (Auto) 8.8 % Eosinophils (%) (Auto) 2.7 % Basophils (%) (Auto) 0.3 % Neutrophils # (Auto) 6.87 1.4-6.5 K/uL Lymphocytes # (Auto) 1.72 1.2-3.4 K/uL Monocytes # (Auto) 0.86 0.11-0.59 K/uL Eosinophils # (Auto) 0.26 0-0.5 K/uL Basophils # (Auto) 0.03 0-0.2 K/uL RDW Standard Deviation 42.1 36.4-46.3 fL RDW Coefficient of Variation 13.0 11.5-14.5 % Immature Granulocyte % (Auto) 0.1 % Immature Granulocyte # (Auto) 0.01 0.00-0.02 K/uL Sodium Level 140 136-145 mmol/L Potassium Level 4.0 3.5-5.1 mmol/L Chloride Level 109 98-107 mmol/L Carbon Dioxide Level 26 21-32 mmol/L Anion Gap 5.0 3-11 mmol/L Blood Urea Nitrogen 7 7-18 mg/dl Creatinine 0.82 0.60-1.20 mg/dl Est Creatinine Clear Calc Drug Dose 116.0 ml/min Estimated GFR () 98.8 Estimated GFR (Non- 85.2 BUN/Creatinine Ratio 9.0 10-20 Random Glucose 121 70-99 mg/dl Calcium Level 8.2 8.5-10.1 mg/dl Total Bilirubin 0.7 0.2-1 mg/dl Aspartate Amino Transf (AST/SGOT) 13 15-37 U/L Alanine Aminotransferase (ALT/SGPT) 23 12-78 U/L Alkaline Phosphatase 79 45-117 U/L Total Protein 6.5 6.4-8.2 gm/dl Albumin 3.1 3.4-5.0 gm/dl Globulin 3.4 2.5-4.0 gm/dl Albumin/Globulin Ratio 0.9 0.9-2 Assessment & Plan IMP : S/P laparoscopic cholecystectomy I update information about OR finding and the procedure pt had, she and her understood, I answered all questions, repeat labs in am, will F/U IMP : acute cholecystitis, I reviewed all labs, pt will have laparoscopic cholecystectomy, possible open or cholangiogram, D/W benefits, risks and alternatives of the procedure, the risks- infection, bleeding, injury CBD, bowel, incisional hernia, pt understood, she agrees with the plan, I answered all questions,
[2016-08-07] MEDS ORDERED: RANITIDINE HCL 150 MG TAB PO SCH (21:00)
[2016-08-07] MEDS: METRONIDAZOLE 500MG / NSS IV SCH (22:27)
[2016-08-08] MEDS: OXYCODONE/ACETAMINOPHEN 5-325 TAB PO PRN ×2 (01:01→07:15)
[2016-08-08 03:44] VITALS: BP 104/74; PULSE 73; TEMP 36.9; O2SAT 94
[2016-08-08] MEDS: D5W AND 1/2NSS + 20MEQ KCL 1,000 ML IV SCH (03:58)
[2016-08-08] MEDS ORDERED: CIPROFLOXACIN / D5W 400 MG in PREMIXED IN D5W 200 ML IV SCH (04:00)
[2016-08-08] MEDS ORDERED: CLINDAMYCIN 600 MG/54 ML D5W IV ONE (06:00)
[2016-08-08 06:05] LABS: COMPLETE YES; HEMATOCRIT 29.6 % (37-47); IG% 0.1 %; LYMPH % 11.6 %; LYMPH ABS # 1.28 K/uL (1.2-3.4); MEAN CELL VOLUME 88.4 fL (80-100); MEAN CORPUSCULAR HEMOGLOBIN 29.6 pg (25-34); MEAN CORPUSCULAR HGB CONC 33.4 g/dl (32-36); MONO % 7.3 %; PLATELET COUNT 304 K/uL (130-400); RED BLOOD COUNT 3.35 M/uL (4.2-5.4); WHITE BLOOD COUNT 11.05 K/uL (4.8-10.8)
[2016-08-08] MEDS: METRONIDAZOLE 500MG / NSS IV SCH (06:16)
[2016-08-08 06:42] LABS: BUN/CREATININE RATIO 10.6 (10-20); CALCIUM 8.5 mg/dl (8.5-10.1); CREATININE 0.8 mg/dl (0.60-1.20); POTASSIUM 4.1 mmol/L (3.5-5.1)
[2016-08-08 06:45] LABS: ALB/GLOB RATIO 0.9 (0.9-2)
[2016-08-08 07:38] VITALS: BP 128/83; PULSE 70; TEMP 36.8; O2SAT 96
[2016-08-08] MEDS: HYDROmorphone INJ 1 MG/ML SYR IV PRN (08:18)
--- NOTE | 2016-08-08 08:48 | Surgery Progress Note ---
Surgery Progress Note Date of Service Aug 08, 2016. Subjective Post OP Day: 1 (s/p laparoscopic cholecystectomy) + diet (full liquids), + feeling well, No SOB, No chest pain, No nausea, No vomiting Objective Vital Signs: Date Time Temp Pulse Resp B/P Pulse Ox O2 Delivery O2 Flow Rate FiO2 08/08/16 07:38 36.8 70 16 128/83 96 Room Air 08/08/16 07:15 Room Air 08/08/16 03:44 36.9 73 16 104/74 94 Room Air 08/08/16 00:10 Room Air 08/07/16 23:25 37.4 77 16 135/79 97 Room Air 08/07/16 20:30 Nasal Cannula 08/07/16 19:35 37.3 93 18 108/77 97 Room Air 08/07/16 18:30 37.2 89 16 125/76 96 Nasal Cannula 4.0 08/07/16 17:30 37.5 82 18 123/75 92 Nasal Cannula 4.0 08/07/16 17:03 36.8 81 15 113/70 92 Nasal Cannula 2.0 08/07/16 16:36 94 Nasal Cannula 2.0 08/07/16 16:35 37.3 85 15 120/67 94 Nasal Cannula 2.0 08/07/16 16:30 95 Nasal Cannula 2.0 08/07/16 16:20 95 08/07/16 16:15 80 18 08/07/16 16:15 81 18 117/66 92 08/07/16 16:11 119/51 08/07/16 16:10 81 16 92 08/07/16 16:10 81 16 08/07/16 16:05 87 17 126/63 93 08/07/16 16:05 86 17 08/07/16 16:01 126/72 08/07/16 16:00 86 18 08/07/16 16:00 86 18 93 08/07/16 15:57 Nasal Cannula 3 08/07/16 15:55 83 13 128/59 92 08/07/16 15:55 83 13 08/07/16 15:50 83 11 08/07/16 15:50 84 11 130/66 92 08/07/16 15:45 86 12 123/63 94 08/07/16 15:45 86 12 08/07/16 15:41 128/61 08/07/16 15:40 85 20 91 08/07/16 15:40 83 26 08/07/16 15:37 129/81 08/07/16 15:35 36.9 83 16 129/81 96 Mask 10 08/07/16 11:37 37.0 77 18 142/83 99 Room Air Physical Exam: SHARON drainage (serosanguineous) General Appearance: WD/WN, no apparent distress Head: normocephalic, atraumatic Neck: trachea midline Respiratory/Chest: lungs clear, normal breath sounds, no respiratory distress, no accessory muscle use Cardiovascular: regular rate, rhythm Abdomen: non distended, soft, + tenderness (appropriate post op) Incision(s): clean, dry (dressings clean and dry) Laboratory Results: Results Past 24 Hours Test 08/08/16 05:33 Range/Units White Blood Count 11.05 4.8-10.8 K/uL Red Blood Count 3.35 4.2-5.4 M/uL Hemoglobin 9.9 12.0-16.0 g/dL Hematocrit 29.6 37-47 % Mean Corpuscular Volume 88.4 80-100 fL Mean Corpuscular Hemoglobin 29.6 25-34 pg Mean Corpuscular Hemoglobin Concent 33.4 32-36 g/dl Platelet Count 304 130-400 K/uL Mean Platelet Volume 10.0 7.4-10.4 fL Neutrophils (%) (Auto) 81.0 % Lymphocytes (%) (Auto) 11.6 % Monocytes (%) (Auto) 7.3 % Eosinophils (%) (Auto) 0.0 % Basophils (%) (Auto) 0.0 % Neutrophils # (Auto) 8.95 1.4-6.5 K/uL Lymphocytes # (Auto) 1.28 1.2-3.4 K/uL Monocytes # (Auto) 0.81 0.11-0.59 K/uL Eosinophils # (Auto) 0.00 0-0.5 K/uL Basophils # (Auto) 0.00 0-0.2 K/uL RDW Standard Deviation 42.8 36.4-46.3 fL RDW Coefficient of Variation 13.2 11.5-14.5 % Immature Granulocyte % (Auto) 0.1 % Immature Granulocyte # (Auto) 0.01 0.00-0.02 K/uL Sodium Level 139 136-145 mmol/L Potassium Level 4.1 3.5-5.1 mmol/L Chloride Level 108 98-107 mmol/L Carbon Dioxide Level 24 21-32 mmol/L Anion Gap 7.0 3-11 mmol/L Blood Urea Nitrogen 8 7-18 mg/dl Creatinine 0.80 0.60-1.20 mg/dl Est Creatinine Clear Calc Drug Dose 118.8 ml/min Estimated GFR () 101.8 Estimated GFR (Non- 87.8 BUN/Creatinine Ratio 10.6 10-20 Random Glucose 128 70-99 mg/dl Calcium Level 8.5 8.5-10.1 mg/dl Total Bilirubin 0.5 0.2-1 mg/dl Direct Bilirubin 0.1 0-0.2 mg/dl Aspartate Amino Transf (AST/SGOT) 27 15-37 U/L Alanine Aminotransferase (ALT/SGPT) 34 12-78 U/L Alkaline Phosphatase 80 45-117 U/L Total Protein 6.4 6.4-8.2 gm/dl Albumin 3.1 3.4-5.0 gm/dl Globulin 3.3 2.5-4.0 gm/dl Albumin/Globulin Ratio 0.9 0.9-2 Assessment & Plan POD # 1 s/p Laparoscopic Cholecystectomy -vitals stable - Total bilirubin normal - LFTS wnl - Minimal SHARON drain output, serosanguineous Plan: Advance diet as tolerated Continue antibiotics until discharge Decrease IV fluids to 63 mls/hr Discharge home today Discharge instructions given Rx for PO Percocet prn pain will be given Follow-up with Dr. Mast 1 week D/C sharon drain Dr. Mast has seen and examined patient, agrees with assessment and plan.
[2016-08-08] MEDS ORDERED: OXYC-57 PO (08:50)
--- NOTE | 2016-08-08 08:55 | Discharge Instructions ---
Discharge Instructions Date of Service Aug 08, 2016. Admission Reason for Admission: Acute Cholecystitis Discharge Discharge Diagnosis / Problem: Acute gangrenous cholecystitis, s/p laparoscopic cholecystectomy Discharge Goals Goal(s): Decrease discomfort Activity Recommendations Activity Limitations: as noted below No heavy lifting over 20 pounds for 2 weeks No strenuous activity until cleared by surgeon Walking is encouraged to prevent blood clots in your legs No driving while taking narcotic pain medication . Instructions / Follow-Up Instructions / Follow-Up You may shower in 4 days and then remove dressings, sponge bath in meantime Steri strips may be removed in 10 days, they may fall off prior to that which is okay Take Narcotic pain medication as needed as prescribed Follow-up with Dr. Mast in 1 week, please call office at [phone] to make an appointment Current Hospital Diet Patient's current hospital diet: Regular Diet Discharge Diet Recommended Diet: Regular Diet Procedures Procedures Performed: Laparoscopic Cholecystectomy Pending Studies Studies pending at discharge: no Medical Emergencies . Who to Call and When: Medical Emergencies: If at any time you feel your situation is an emergency, please call 911 immediately. . Non-Emergent Contact Non-Emergency issues call your: Primary Care Provider, Surgeon Call Non-Emergent contact if: you have a fever, temperature is above 101.5, your pain is not controlled, your pain is worsening, wound has increased drainage, wound has increased redness, wound has increased pain . "Provider Documentation" section prepared by Kelle Stanley. . VTE Core Measure Inpt VTE Proph given/why not?: SCD's [place] Drug Monitoring Program Search Results: patient reviewed within database, no issues identified
--- NOTE | 2016-08-08 09:03 | Anesthesiology Progress Note ---
Anesthesia Post Op Note Date & Time Aug 08, 2016 at 09:01 Vital Signs Pain Intensity: 10.0 Vital Signs Past 12 Hours Date Time Temp Pulse Resp B/P Pulse Ox O2 Delivery O2 Flow Rate FiO2 08/08/16 07:38 36.8 70 16 128/83 96 Room Air 08/08/16 07:15 Room Air 08/08/16 03:44 36.9 73 16 104/74 94 Room Air 08/08/16 00:10 Room Air 08/07/16 23:25 37.4 77 16 135/79 97 Room Air Notes Mental Status: alert / awake / arousable, participated in evaluation Pt Amnestic to Procedure: Yes Nausea / Vomiting: adequately controlled Pain: adequately controlled Airway Patency, RR, SpO2: stable & adequate BP & HR: stable & adequate Hydration State: stable & adequate Anesthetic Complications: no major complications apparent Anesthetic Complications: Swollen left lower lip. Discussed possible causes. Pt denies pain. Verbal apology.
[2016-08-08 10:13] VITALS: BP 128/83; PULSE 70; TEMP 36.8; O2SAT 96
--- NOTE | 2016-08-09 10:02 | Discharge Summary ---
Discharge Summary Dates Admission Date / Time: Aug 06, 2016 at 00:48 Discharge Date: Aug 08, 2016 Dispostion / Condition Discharge Disposition: Home Condition at Discharge: Good Principal Diagnosis (1) Acute cholecystitis Consultations / Procedures Consultations: None Procedures: Laparoscopic Cholecystectomy with placement of DARBY drain Pending Studies / Follow-Up None Medication Reconciliation New Medications: Oxycodone/Acetaminophen 5MG/325MG (Percocet 5MG/325MG) Tab 1 TABLET PO Q4H PRN for Pain, #18 TAB Continued Medications: Atorvastatin (Lipitor) 10 Mg Tab 10 MG PO QPM, TAB Hctz/Losartan (Hyzaar 12.5MG/50MG) 1 Ea Tab 1 TAB PO QAM, TAB Ranitidine HCl (Ranitidine 75) 75 Mg Tab 75 MG PO QPM Admission HPI Per the Admitting provider: The patient is a 45 year old female who presented to the Emergency Room on late evening of 08/06/2016 with complaints of right-sided abdominal pain. She reported that she developed pain in her right upper abdomen approximately 5 hours prior to arriving to ER. The patient stated that she initially thought the pain may be due to gas, but her symptoms continued to gradually worsen. She stated that the pain became worse after eating. She reported it had been colicky pain. She rated her discomfort an 8/10. She had nausea, but no vomiting. She denied any urinary symptoms or changes in bowel movements. She reported that she has had similar episodes of pain one month ago and one year ago. She reported a history of a CVA secondary to cavernous hemangioma and hypertension. She denied any history of abdominal surgery. She denied any fevers/chills, chest pain or shortness of breath. Ultrasound of the abdomen showed gallstones and mild gallbladder wall thickening. Her LFTS and total bilirubin were within normal limits. She did have a leukocytosis of 12.25. Patient was admitted to med/surg floor with IV fluids, IV antibiotics, pain medication, and kept NPO. Plan for laparoscopic cholecystectomy the following day. Admission Exam Per the Admitting provider: General Appearance: WD/WN, + mild distress Head: normocephalic Eyes: normal inspection ENT: normal ENT inspection Neck: supple, no JVD Respiratory/Chest: chest non-tender, lungs clear Cardiovascular: regular rate, rhythm, no edema, no gallop, no JVD, no murmur Abdomen/GI: normal bowel sounds, soft, no organomegaly, + tenderness (RUQ) Extremities/Musculoskelatal: normal inspection, no calf tenderness, normal capillary refill Neurologic/Psych: eeg tech II-XII nml as tested, no motor/sensory deficits, alert , normal mood/affect Hospital Course (1) Acute cholecystitis Taina underwent laparoscopic cholecystectomy on 08/07/[address] Mast. The gallbladder was found to be acute inflamed, gangrenous, and very edematous. Given the nature of the inflammation a DARBY drain was placed. Tolerated procedure well and was transferred to PACU and then MEd/Surg in stable condition. POD # 1 she had a slight leukocytosis compared to day previous of 11.0 (9.75 pre-op) . Vitals were stable, pain was controlled, and tolerated full liquid diet. Patient was stable and she wanted to be discharged to home. DARBY drain was removed and diet was advanced to regular diet prior to discharge. Overall hospital stay was uneventful and uncomplicated. Discharge Instructions as given to patient Copies To Primary Care Provider: Toña Falk M.D..
== END 2016-08-08 10:35 | disposition home or self-care (01) | DRG 418 ==
LOC: ENRESERVTM → ENRESERVDT → C.EDB 21:18 → C.MSN 08-06 00:48
PROVIDERS: ADMIT Surgery; ATTEND Surgery
PROC: 0FT44ZZ Resection of Gallbladder, Percutaneous Endoscopic Approach (ICD-10-PCS; principal; 2016-08-07 11:45)
DX: K80.00 Calculus of gallbladder with acute cholecystitis without obstruction (principal); Z68.42 Body mass index [BMI] 45.0-49.9, adult; I10 Essential (primary) hypertension; E66.9 Obesity, unspecified; Z86.73 Personal history of transient ischemic attack (TIA), and cerebral infarction without residual deficits